=== PATIENT | female | born 1965 | race Caucasian/White ===

== ENCOUNTER 2016-11-24 06:41 | Day surgery (SDC) | payer BC, OTHER ==
[~2016-11-24] VITALS: Ht 165.1 cm; Wt 80.7 kg
--- NOTE | ~2016-11-24 | O ---
[facility] [place] [address] OPERATIVE REPORT Name: KIMBERLY STEPHENSON Room #: 150-6 [facility]#: [id number] Admission: 11/24/16 Attend Phys: Filippo Colin MD Discharge: Date of : 63 Report #: [id number] THIS REPORT FOR: //name// CC: SILVIANO Damon MD DATE OF SERVICE: 11/24/2016 PREOPERATIVE DIAGNOSIS: Left proximal hamstring avulsion. POSTOPERATIVE DIAGNOSIS: Left proximal hamstring avulsion. PROCEDURE: Left hamstring proximal repair. SURGEON: Filippo Colin MD. ANESTHESIA: General. INDICATIONS: See hospital H and P. DESCRIPTION OF PROCEDURE: After adequate general anesthesia had been obtained, the patient was transferred carefully to the prone position on transverse chest rolls. All prominences were padded. We then meticulously prepped and draped the left lower extremity. Incision was made from the gluteal crease extending distally central portion of the thigh. SubQ divided using gentle spreading technique. The fascia was divided. Gluteus was retracted proximally. The seroma was evacuated. She had a few fibers of the biceps femoris origin still intact, which were released to allow mobilization of the tendon. The bone was then exposed. We used a rongeur to freshen the bone surface for adequate repair. Three [employer] anchors were then placed. These were double loaded anchors. We then used the kurt technique and passed all the sutures, tied one limb of each suture and then pulled the tendon back down to the bone with excellent reapproximation. These were all tied securely into position. The knee was taken through full range of motion and she did not have undue tension on the repair when doing so. The wound was then irrigated copiously, meticulous hemostasis obtained. The fascia was reapproximated with running 2-0 Monocryl. SubQ closed with 2-0 Monocryl, skin closed with running subcuticular 2-0 Prolene. Steri-Strips were applied and sterile compressive dressing was applied. By: [id number] [id number] Filippo Colin MD /nt
[~2016-11-24 06:41] MED LIST: ALEVE220 M1 PO; HAIR SKIN NAIL1 EACH PO; LEVOTHYROXIN0.112 M1 PO; SUPER B COMPLE150 MG PO; VITAMIN D-32000 UNIT PO; VITAMINC500 PO
[2016-11-24 10:28] VITALS: BP 142/86
[2016-11-24 14:13] VITALS: BP 142/86
== END 2016-11-24 14:50 | disposition home or self-care (01) ==
LOC: TBA 06:41 → OR 06:41 → TBA 06:42 → OR 09:46
DX: S76.892A Other injury of other specified muscles, fascia and tendons at thigh level, left thigh, initial encounter (principal); X58.XXXA Exposure to other specified factors, initial encounter; Y93.9 Activity, unspecified; Y92.89 Other specified places as the place of occurrence of the external cause; Y99.9 Unspecified external cause status; E03.9 Hypothyroidism, unspecified; Z98.890 Other specified postprocedural states
CPT/HCPCS: 50010; 50101; 50386; 50417; 50637; 51412; 53337; 55430; 56525; 62110; 62900; 70005